=== PATIENT | female | born 1980 | race Two or more races ===

== ENCOUNTER 2025-07-31 13:00 | Day surgery (SDC) | payer OTHER ==
[2025-07-23 13:43] VITALS: BP 123/84
[~2025-07-31] VITALS: Ht 175.3 cm; Wt 78.5 kg
[2025-07-31] MEDS ORDERED: POVIDONE-IODINE 118 ML BOTT TOP ONE (15:43)
[2025-07-31] MEDS ORDERED: PROMETHAZINE HCL 50 MG/ML AMPUL IM PRN (17:15)
== END 2025-07-31 19:20 | disposition home or self-care (01) ==
LOC: CIR.AMB 13:00
PROVIDERS: ATTEND Obstetrics & Gynecology
DX: N84.0 Polyp of corpus uteri (principal)